=== PATIENT | female | born 1935 | race Caucasian/White ===

== ENCOUNTER 2019-11-09 12:37 | Inpatient (IN) | payer MEDICARE, OTHER ==
[~2019-11-09] VITALS: Ht 165.1 cm; Wt 67.7 kg
[~2019-11-09 12:37] MED LIST: LORTAB 5/500 501 TAB PO; NO HOME MEDICATIONS
[2019-11-09] MEDS ORDERED: NAPROSYN500 MG PO (12:50)
[2019-11-09 13:51] LABS: HEMOGLOBIN 11.2 g/dl (12.5-16.0); MEAN CELL VOLUME 84 fl (80.0-100.0); MEAN CORPUSCULAR HEMOGLOBIN 28 pg (27.0-31.0); MEAN CORPUSCULAR HGB CONC 33 g/dl (33.0-37.0); MEAN PLATELET VOLUME 9.2 fl (7.4-10.4); PLATELET COUNT 373 K/mm3 (130-400); RED BLOOD COUNT 4.01 M/mm3 (4.10-5.30); REDCELL DISTRIBUTION WIDTH-CV 15.3 % (11.5-14.5)
[2019-11-09 13:53] LABS: ALBUMIN 3.9 gm/dL (3.5-5.0); BILIRUBIN,TOTAL 4.5 mg/dL (0.0-1.0); CREATININE, serum 0.96 (0.52-1.25); TOTAL PROTEIN 7.9 gm/dL (6.4-8.2)
[2019-11-09 13:59] LABS: HEMATOCRIT 33.8 % (37.0-47.0)
[2019-11-09 14:04] LABS: C-REACTIVE PROTEIN 22.8 mg/dL (0.0-0.9)
[2019-11-09 15:59] LABS: BAND 4 % (0-10); EOSINOPHIL 2 % (0-4); LYMPHOCYTE 1 % (20.0-51.0); NEUTROPHILS 88 % (42.0-75.2); PLATELET ESTIMATE NORMAL (NORMAL)
[2019-11-09 16:49] LABS: INR 1.3 (0.8-3.0); PROTHROMBIN TIME 15.6 SECONDS (9.7-12.8)
--- NOTE | 2019-11-09 17:47 | NUR ---
Pt arrived to floor at this time via cart with ER staff, oriented to Justino mendez in room to see pt at this time. [facility]
--- NOTE | 2019-11-09 18:59 | NUR ---
Pt up to commode with 1 person assist. Underwear bloody, pt revealed 3x5cm open area pt states is excoriated exzema but appears almost like a pressure ulcer, placed mepilex dressing and brief on pt. Urine is ubaldo and clear. Pt back in bed, elevated RLE on pillows for RLE cellulitis that is very red and no open draining areas. L thigh has 2 scabbed large areas that are yellow and reddened at the edges, MUSIC PRODUCER. L elbow has skin tear that is covered with gauze. L A/C IVF. Pt is alert and oriented, states RLE and sacrem are painful. Eating supper. Bedside shift report given to nightshift nurse who will resume care.
--- NOTE | 2019-11-09 19:30 | NUR ---
Received report from Kandy. Patient is awake, sitting on bed. Relatives at the bedside. With IVF on left AC infusing NS at 100ml/hr. Noted to have swelling and redness more evident on right leg. With sore on left thigh. Patient denies pain.
[2019-11-09 19:32] VITALS: BP 147/69; PULSE 92; TEMP 98.5
[2019-11-09 19:43] LABS: MUCOUS Present /lpf; PH 5 (5-8); SQUAMOUS EPITHELIAL 0-2 /hpf; URINE APPEARANCE Clear; URINE BACTERIA None Seen /hpf; URINE BILIRUBIN Negative (NEGATIVE); URINE BLOOD 1+ (NEGATIVE); URINE COLOR Yellow; URINE GLUCOSE Negative (NEGATIVE); URINE KETONE Trace (NEGATIVE); URINE LEUKOCYTE ESTERASE Negative (NEGATIVE); URINE NITRATE Negative (NEGATIVE); URINE PROTEIN(semi-quant) Negative (NEGATIVE)
[2019-11-09 19:59] LABS: COLLECTION METHOD CLEAN CATCH
[2019-11-09 23:21] VITALS: BP 120/63; PULSE 76; TEMP 99.6
[2019-11-09] MEDS ORDERED: OMEGA-3 1000 MG1 CAP PO (23:57)
[2019-11-09] MEDS ORDERED: VITAMIN D 1001000 IU PO (23:58)
[2019-11-10] MEDS ORDERED: VITAMIN B COMPL1 T16 PO (00:02)
--- NOTE | 2019-11-10 02:50 | NUR ---
Assisted patient to bedside commode to urinate. Noted to have mepilex on her butt. Medication recon updated.
[2019-11-10 03:45] VITALS: BP 135/65; PULSE 84; TEMP 98.9
[2019-11-10 06:17] LABS: BASO % 0.3 % (0.0-2.0); EOS # 0.3 (0.0-0.7); EOS % 2.8 % (0-4.0); GRAN # 9.4 (1.4-6.5); GRAN % 85.8 % (42.2-75.2); LYMPH # 0.5 (1.2-3.4); LYMPH % 4.6 % (20.0-51.0); MEAN CELL VOLUME 84 fl (80.0-100.0); MEAN CORPUSCULAR HGB CONC 33 g/dl (33.0-37.0); MEAN PLATELET VOLUME 8.9 fl (7.4-10.4); MONO # 0.6 (0.1-0.6); MONO % 5.2 % (1.7-9.3); PLATELET COUNT 334 K/mm3 (130-400); RED BLOOD COUNT 3.34 M/mm3 (4.10-5.30); REDCELL DISTRIBUTION WIDTH-CV 15.3 % (11.5-14.5)
[2019-11-10 06:22] LABS: HEMOGLOBIN 9.3 g/dl (12.5-16.0); MEAN CORPUSCULAR HEMOGLOBIN 28 pg (27.0-31.0)
[2019-11-10 06:38] LABS: ALBUMIN 2.8 gm/dL (3.5-5.0); BILIRUBIN,TOTAL 1.1 mg/dL (0.0-1.0); CALCIUM 8.7 mg/dL (8.4-10.2); CREATININE, serum 0.7 (0.52-1.25); POTASSIUM 3.9 mmol/L (3.4-5.0); TOTAL PROTEIN 6.1 gm/dL (6.4-8.2)
[2019-11-10 07:29] VITALS: BP 137/68; PULSE 83; TEMP 98.9
--- NOTE | 2019-11-10 09:00 | NUR ---
Patient resting in bed, daughter at bedside. Patient is alert and orineted, answers questions appropriately. Right foot is discolored, right leg is more edemetous and red than the left, redness is within previously marked borders. Some areas of scaling and flaking on the right leg. IVF infusing per order. Patient denies need at this time, call light within reach.
[2019-11-10 11:32] VITALS: BP 121/63; PULSE 81; TEMP 98.5
--- NOTE | 2019-11-10 16:06 | NUR ---
Corporate Compliance Manager met with patient to discuss discharge planning. Patient lives alone in [place] and sees Landy Zapata at [facility] for primary care. Patient states she either uses [facility] or [facility] for needed medications. Patient has a rolling cart and cane she uses to get around. Donna PT met with SW to advise that patient would benefit from four wheeled walker but that patient was not very open to it at this time. PT/OT recommending post acute rehab vs home health. SW reviewed this with patient who states she plans to go home as she needs to care for her cats. SW suggested patient's daughter, Lindy (ph#[phone]) may be able assist short term while patient is in rehab. Patient states Lindy has enough to do and feels she can go home safely. Patient states she is open to Home Health. SW provided Medicare.marinanow list of Home Health agencies and patient reports she will make a choice once she can review list with Lindy. Patient does not have Advance Directives but may be interested in completing them. Patient wants to speak with Lindy about this first. SW asked patient if she has any secondary insurance coverage and she reported she has a [employer] Application at home that was provided to her by [facility]. Patient states she has not completed it yet. SW contacted Regla, Financial Counselor who will follow up tomorrow. SW contacted patient's daughter Lindy who prefers post acute rehab for patient but reports patient is strong willed and can make her own decisions at this point. Lindy advised she is worried that patient doesn't change her clothes or bathe at home like she should. Lindy will review list of Home Health agencies with patient. SW will follow up on choice and continue to follow to ensure safe discharge.
[2019-11-10 16:31] VITALS: BP 132/57; PULSE 78; TEMP 98.8
--- NOTE | 2019-11-10 17:31 | NUR ---
Patient ambulated with PT and reported that IV was leaking. Upon inspection, site was not reddened but catheter hadmigrated out of vein. Restarted a 22 gauge in the left hand, patient tolerated procedure well. Patient denies pain or further needs at this time, call light within reach.
[2019-11-10 19:55] VITALS: BP 142/68; PULSE 75; TEMP 98.5
[2019-11-10 23:50] VITALS: BP 136/66; PULSE 74; TEMP 99.1
[2019-11-11 03:25] VITALS: BP 146/59; PULSE 71; TEMP 98.6
--- NOTE | 2019-11-11 06:09 | NUR ---
Pt had some nausea at the beginning of the shift that caused some dry heaving. Pt then was given some zofran. No more nausea throughout the night. Pt has no c/o pain, just some discomfort with her legs and back (from the bed she states). No other concerns at this time. call light within reach.
[2019-11-11 06:25] LABS: MEAN CELL VOLUME 86 fl (80.0-100.0); MEAN CORPUSCULAR HGB CONC 33 g/dl (33.0-37.0); MEAN PLATELET VOLUME 8.8 fl (7.4-10.4); PLATELET COUNT 308 K/mm3 (130-400); RED BLOOD COUNT 3.14 M/mm3 (4.10-5.30); REDCELL DISTRIBUTION WIDTH-CV 15.7 % (11.5-14.5)
[2019-11-11 06:33] LABS: HEMATOCRIT 26.9 % (37.0-47.0); HEMOGLOBIN 8.8 g/dl (12.5-16.0); MEAN CORPUSCULAR HEMOGLOBIN 28 pg (27.0-31.0)
[2019-11-11 06:42] LABS: ALBUMIN 2.6 gm/dL (3.5-5.0); BILIRUBIN,TOTAL 0.5 mg/dL (0.0-1.0); CALCIUM 8.2 mg/dL (8.4-10.2); CREATININE, serum 0.6 (0.52-1.25); POTASSIUM 3.9 mmol/L (3.4-5.0); TOTAL PROTEIN 5.7 gm/dL (6.4-8.2)
[2019-11-11 07:56] LABS: BAND 5 % (0-10); LYMPHOCYTE 8 % (20.0-51.0); METAMYELOCYTE 1 % (0-0); NEUTROPHILS 84 % (42.0-75.2); OVALOCYTES 1+; PLATELET ESTIMATE NORMAL (NORMAL)
[2019-11-11 08:07] VITALS: BP 145/66; PULSE 76; TEMP 99.4
--- NOTE | 2019-11-11 09:03 | NUR ---
Patient is alert and oriente. Patient complain of soreness but decline pain medication. Daughter is visiting at bedside at the moment. Patient is in bed resting.
[2019-11-11 11:54] VITALS: BP 132/60; PULSE 81; TEMP 98.6
--- NOTE | 2019-11-11 12:03 | NUR ---
Initial visit attempt; Patient resting, Plate Washer spoke with her daughter, letting her know of the availability of spiritual care at our hospital.
[2019-11-11 15:25] VITALS: BP 132/60; PULSE 81; TEMP 98.6
--- NOTE | 2019-11-11 16:44 | NUR ---
Patient to discharge to [facility] today. SW notified Mary at [facility] and thanked her for reviewing referral. No additional needs at this time.
--- NOTE | 2019-11-11 16:56 | NUR ---
Patient is alert and oriented. She ambulate fine with PT down the castillo this afternoon. Patient denies any discomfort at this time. Patient is discharging to in-patient Rehab. Report given to Nicole Travis in-patient rehab unit.
== END 2019-11-11 17:08 | DRG 603 ==
LOC: COL.ER 12:37 → MEDICAL 15:30
PROVIDERS: Emergency Medicine; Physician Assistant; ADMIT Hospitalist
DX: L03.115 Cellulitis of right lower limb (principal); E87.1 Hypo-osmolality and hyponatremia; K81.0 Acute cholecystitis; D64.9 Anemia, unspecified; I10 Essential (primary) hypertension; K81.9 Cholecystitis, unspecified
CPT/HCPCS: OP; 99222-AI; 99232-AI; 99239; G0378; J1644; J2405; J3370; J7030; J7050

== ENCOUNTER 2019-11-11 12:29 | Inpatient (IN) | payer MEDICARE, OTHER ==
[~2019-11-11] VITALS: Ht 162.6 cm; Wt 65.0 kg
[~2019-11-11 12:29] MED LIST changes: +NAPROSYN500 MG PO; +OMEGA-3 1000 MG1 CAP PO; +VITAMIN B COMPL1 T16 PO; +VITAMIN D 1001000 IU PO
--- NOTE | 2019-11-11 16:56 | NUR ---
Report from Miaa medical nurse.
--- NOTE | 2019-11-11 17:17 | NUR ---
Pt arrived on unit per bed by DISINTEGRATOR OPERATOR, with daughter and granddaughter.
[2019-11-11 17:27] VITALS: BP 136/63; PULSE 76; TEMP 98.4
[2019-11-11 17:32] VITALS: BP 136/63; PULSE 78; TEMP 98.4
--- NOTE | 2019-11-11 19:27 | NUR ---
Bedside report to MARY Garcia. Pt in bed, turned alarm on, family has left for the night. Pt with call lt in reach.
--- NOTE | 2019-11-11 20:00 | NUR ---
SEE SHIFT ASSESSMENT. PT RESTING IN BED. NOTEABLE KYPHOSIS. NEEDS 2 PILLOWS TO SUPPORT HER HEAD. PT HAS FINE TREMORS. PT RELATES IS GETS WORSE. WISH DR'S WOULD LOOK INTO IT BECAUSE IT AFFECT HER BALANCE. CALL LIGHT IN REACH. BED ALARM SET.
[2019-11-12 05:44] VITALS: BP 144/67; PULSE 82; TEMP 98.4
--- NOTE | 2019-11-12 06:08 | NUR ---
PT UP TO BR. MEPILEX TO COCCYX REMOVED. LG STAGE 3 WOUND APPROX 10CM X 10 CM. EDGES OF WOUND RAISED. NO BONE OR FAT EXPOSED. SURROUNDING AREA RED OR DISCOLORED. AREA CLEANED W/ NS THE SACRAL DRSG APPLIED. PT DIDNT WANT WET BRIEFS CHANGED. ASSISTED TO BR. VOIDED AND CLEANED UP. BACK TO BED. PT REFUSED TO LAY ON EITHER SIDE. WILL PLACE BED OVERLAY.
--- NOTE | 2019-11-12 08:29 | NUR ---
Ice pack to rt knee for pain, tylenol given, pt doesn't think it will help, used to taking her naproxen.
--- NOTE | 2019-11-12 16:35 | NUR ---
AN met with the patient to complete initial intake, as the patient is new to [facility]. The patient lives alone in [place]. She states that her daughter, Lindy Garcia (ph#[phone]), lives two blocks away from her. She reports independence with ADLs and has a cane. The patient's primary care provider is Landy Zapata APRN at [facility] and she receives her medications at [facility]. She reports that she has never really been on any prescription medications, to have diffulties affording them. The patient does not have advanced directives, but she was interested in obtaining a form for DPOA-HC. AN provided. She states that her and her daughter have been discussing completing them. She states that her daughter should be up to visit her tomorrow. SW to continue to follow to ensure a safe discharge.
--- NOTE | 2019-11-12 17:48 | NUR ---
Stage II coccyx: left buttock with three open wounds over an area 2x4cm. Applied silver gauze to raw areas, ulcer is not complete thickness of skin. Red/purple blanchable surrounding area: 11 cm high, 7 cm across left buttock, 5 cm across right buttock. Sacral dressing applied and dated.
[2019-11-12 18:33] VITALS: BP 139/65; PULSE 88; TEMP 98.8
--- NOTE | 2019-11-12 19:58 | NUR ---
Bedside report to MARY Garcia. Pt was toileted, returned to bed, RLE elevated on pillow, air mattress in place on bed, alarm on, call lt in reach, glasses and gripper socks in place. Seat cushion to recliner. Provided pt one of her fully charged hearing aids, plugged the second one in.
--- NOTE | 2019-11-12 20:00 | NUR ---
PT SAT UP ON SIDE OF BED. ALARM SOUNDING. FRUSTRATED SHE HAS TO HAVE AN ALARM. REVIEWED SAFETY PRECAUTIONS. PT VERBALIZED UNDERSTANDING. TIN POT OPERATOR ASSISTED PT TO BR- VOIDED. COCCYX DRSG IN PLACE.
[2019-11-13 05:30] VITALS: BP 163/72; PULSE 76; TEMP 98.1
--- NOTE | 2019-11-13 07:30 | NUR ---
Patient resting in bed eating breakfast at this time. Right leg is edemetous, non pitting. Right foot is discolored, skin on RLE is dry and flaky. Patient denies pain or needs at this time, call light within reach.
--- NOTE | 2019-11-13 14:53 | NUR ---
AN met with the patient and her daughter, Lindy, to follow up before the weekend and to discuss setting up a patient/family conference. The patient states that she is doing well. Just got done with therapy and is tired. She was interested in completing a DPOA-HC. AN and RN, Victoria, witnessed the patient's signature. She designated her daugher, Lindy, as her DPOA-HC. The patient was provided with the original and some copies. AN placed a copy in the patient's chart. A patient/family conference was scheduled for next Saturday, 11/16, at 1300. AN notified IPR Director. AN to continue to follow.
[2019-11-13 15:50] VITALS: BP 155/72; PULSE 80; TEMP 98.9
--- NOTE | 2019-11-13 16:47 | NUR ---
Patient in bed resting. Daughter at bedside.
--- NOTE | 2019-11-13 18:26 | NUR ---
Patient has done well this afternoon. Denies further needs at this time. Will report off to overnight stocker.
--- NOTE | 2019-11-13 20:40 | NUR ---
Patient calls for assist up to the bathroom. Some difficulty sitting up on side of bed but does so independently. Manages all toileting tasks. Aquacel to buttucks CDI. Declines pain med for RLE achyness/soreness following therapy. Rests self slowly back in bed. HS meds reviewed and given. Declines snack. Reads a book.
[2019-11-14 05:03] VITALS: BP 153/70; PULSE 77; TEMP 98.9
--- NOTE | 2019-11-14 11:27 | NUR ---
PT HAS BED ALARM ON. CALL LIGHT IN REACH. PT ATE 100% MEAL AT BREAKFAST. HAS JUST RETURNED FROM THERAPY WITH STAFF. AQUAPHOR JELLY PUT ON LEFT FOOT. THE SKIN IS LESS REDDENED. THE TOP OF THE LEFT FOOT REMAINS BRUISED AND PUFFY WITH YELLOWISH EXUDATE PRESENT. THE TOES ARE QUITE SWOLLEN AND PURPLISH.
--- NOTE | 2019-11-14 13:32 | NUR ---
PT MELISSA TO GET OUT AND IN BED PER SELF. SHE NEEDS MINIMAL ASSIST WITH HER RIGHT LEG INTO BED. OTHERWISE HER PAIN IS CONTROLLED AND SHE IS COMFORTABLE.
[2019-11-14 16:18] VITALS: BP 144/71; PULSE 79; TEMP 99
--- NOTE | 2019-11-14 18:13 | NUR ---
PT HAS BEEN READING AND NAPPING FOR MOST OF THE DAY SINCE HER THERAPY. SHE HAS EATEN WELL FOR ALL MEALS. SHE HAS HAD NO REAL PAIN JUST DISCOMFORT THAT SHE DID NOT WANT MEDS FOR. HER RIGHT LEG HAS BEEN UP ON PILLOWS EXCEPT WHEN SHE GOES TO THE BATHROOM. SHE AMBULATES WELL AND MOVES IN HER BED WELL. CALL LIGHT AND ALARMS INPLACE
--- NOTE | 2019-11-14 19:00 | NUR ---
Report received from Nichelle HERNANDEZ. Patients daughter in visiting and brought clothes in for patient.
--- NOTE | 2019-11-14 21:30 | NUR ---
HS meds reviewed and given. Patient up to the bathroom and changes into gown. Encouraged not to stand to take off pants but states she knows her limitations and does it this way at home. Patient rests self with some difficulty back in bed. BLE elevated/heels floated. RLE remains red and warm to touch from knee down. Right top of foot with purple and tanish discoloration. States her daughter just applied aquafor to RLE. Declines pain med and snack.
--- NOTE | 2019-11-15 03:01 | NUR ---
Rests with eyes closed. Respirations with ease.
[2019-11-15 04:51] VITALS: BP 149/67; PULSE 89; TEMP 97.4
--- NOTE | 2019-11-15 08:07 | NUR ---
Lying in bed with eyes open watching TV. Denies pain. Right lower extremity with redness and bruising noted to foot. Two scabbed over areas on left lower extremity. Mild swelling in bilat LE. Patient denies any needs at this time.
--- NOTE | 2019-11-15 09:20 | NUR ---
Patient did not want to perform bed bath today. Assisted into chaning into personal clothes. Patient brushes teeth. Returns to bed once completed.
--- NOTE | 2019-11-15 12:55 | NUR ---
Patient assisted into bathroom to urinate. Returns to bed. Does not want to sit in the chair as she says that it is too uncomfortable. Patient denies further needs or concerns at this time.
--- NOTE | 2019-11-15 16:00 | NUR ---
Lying in bed in supine position with eyes closed. Resp even and unlabored. No signs or symptoms of discomfort noted. Right leg is elevated on pillow. Opens eyes when name called out. Denies any needs at this time.
[2019-11-15 16:12] VITALS: BP 130/62; PULSE 73; TEMP 98.7
--- NOTE | 2019-11-15 17:25 | NUR ---
Sitting up in bed watching TV. Denies pain. Denies any needs or concerns at this time.
--- NOTE | 2019-11-15 19:30 | NUR ---
PATIENT RESTING IN BED, WATCHING TV DURING SHIFT CHANGE REPORT FROM DAY SHIFT NURSE. BED ALARM ON.
--- NOTE | 2019-11-16 01:35 | NUR ---
RESTING IN BED WITH EYES CLOSED, DOES NOT AWAKEN WHEN ROOM ENTERED. BED ALARM ON. BREATHING NONLABORED AND EVEN.
--- NOTE | 2019-11-16 04:33 | NUR ---
RESTING IN BED, EYES CLOSED, DOES NOT AWAKEN WHEN ROOM ENTERED, BREATHING EVEN/NONLABORED, BED ALARM ON.
[2019-11-16 05:05] VITALS: BP 147/68; PULSE 70; TEMP 98.2
[2019-11-16 06:38] LABS: MEAN CELL VOLUME 88 fl (80.0-100.0); MEAN CORPUSCULAR HGB CONC 32 g/dl (33.0-37.0); MEAN PLATELET VOLUME 9.1 fl (7.4-10.4); PLATELET COUNT 362 K/mm3 (130-400); RED BLOOD COUNT 3.28 M/mm3 (4.10-5.30); REDCELL DISTRIBUTION WIDTH-CV 15.7 % (11.5-14.5)
[2019-11-16 06:47] LABS: HEMATOCRIT 28.7 % (37.0-47.0); HEMOGLOBIN 9.1 g/dl (12.5-16.0); MEAN CORPUSCULAR HEMOGLOBIN 28 pg (27.0-31.0)
[2019-11-16 06:55] LABS: ALBUMIN 3.1 gm/dL (3.5-5.0); BILIRUBIN,TOTAL 0.5 mg/dL (0.0-1.0); C-REACTIVE PROTEIN 2.6 mg/dL (0.0-0.9); CREATININE, serum 0.76 (0.52-1.25); POTASSIUM 3.9 mmol/L (3.4-5.0); TOTAL PROTEIN 6.6 gm/dL (6.4-8.2)
[2019-11-16 07:25] LABS: BAND 2 % (0-10); EOSINOPHIL 1 % (0-4); HYPOCHROMIA 1+; LYMPHOCYTE 19 % (20.0-51.0); METAMYELOCYTE 1 % (0-0); MYELOCYTE 1 % (0-0); NEUTROPHILS 71 % (42.0-75.2); OVALOCYTES 1+
--- NOTE | 2019-11-16 07:26 | NUR ---
PATIENT IN BED DURING SHIFT CHANGE REPORT GIVEN TO DAY SHIFT NURSE. BED ALARM ON.
[2019-11-16 08:15] LABS: PATHOLOGY DIFF REVIEW OK
--- NOTE | 2019-11-16 09:13 | NUR ---
Patient working with therapy at this time. Patient reports that recliner is very uncomfortable for her. Cushion is on the chair, but patient has kyphosis and this causes her to have more discomfort when sitting in a chair. Patient was asking about blood pressure cuffs. This nurse will research where to get them and prices for her. Patient denied any other questions at this time.
--- NOTE | 2019-11-16 10:05 | NUR ---
Patient was a one assist with gait belt and walker to the bathroom this morning. She was able to pull pants up and down and wipe self independently with only touch assist as needed for steadying. Patient resting in bed at this time, call light in reach, bed alarm set and reading a book.
--- NOTE | 2019-11-16 13:43 | NUR ---
Celery Packer participated in a family meeting which included IPR Director Clair, PT/OT, and patient's daughter Lindy (ph#[phone]). Clair opened the meeting and explained purpose then PT/OT reviewed patient's progress and goals. Lindy discussed possible equipment needs with the team and is interested in obtaining grab bars, cushions, and a tub transfer bench for patient. The team also discussed the potential recommendation for a four wheeled walker. Patient states she does not feel she needs it at this time but was open to obtaining one as a back up for her "bad days". Patient also stated she needs to go home by Saturday. SW will continue to follow.
[2019-11-16 18:30] VITALS: BP 154/67; PULSE 81; TEMP 97.4
--- NOTE | 2019-11-16 19:40 | NUR ---
PATIENT IN BED DURING SHIFT CHANGE REPORT FROM DAY SHIFT NURSE. BED ALARM ON.
--- NOTE | 2019-11-16 20:38 | NUR ---
Patient resting in bed call light in reach and alarm set. Gave report to night nurse.
--- NOTE | 2019-11-17 01:00 | NUR ---
PATIENT RESTING WITH EYES CLOSED, DOES NOT AWAKEN WHEN ROOM ENTERED, BREATHING EVEN AND NONLABORED. BED ALARM ON.
[2019-11-17 05:18] VITALS: BP 148/70; PULSE 63; TEMP 97.6
--- NOTE | 2019-11-17 09:22 | NUR ---
Patient resting in bed call light in reach and bed alarm set. Applied aquaphor to bilateral feet. Patient has less edema to the left knee then yesterday, but there is still redness and warmth. She was given Naproxyn to help with inflammation and pain prior to her morning therapies today. Patient has two scabbed areas on left thigh that still have some redness around them, but area continuing to heal. Patient is on an Antibiotic at this time. Will continue to monitor.
--- NOTE | 2019-11-17 10:47 | NUR ---
This nurse spoke with DENIS Mitchell to find out if the redness to the patient's later right knee and foot per her observation has improved and she has agreed that it has. She did report that patient was concerned about lateral right knee hurting more. This nurse observed some swelling to that right knee last night, but this morning after elevation the swelling was not there. Will continue to monitor.
--- NOTE | 2019-11-17 11:13 | NUR ---
Initial visit; Patient thanked Warehouse Associate Driver for looking in on her and offering God's blessings and to keep her in her prayers.
[2019-11-17 15:34] VITALS: BP 151/71; PULSE 72; TEMP 97.5
--- NOTE | 2019-11-17 17:34 | NUR ---
Stage II Coccyx Ulcer observed this afternoon left buttocks has a healing ulcer that has continued to get smaller now being closed area that is 4 cm x 0.5 cm oblong shape with a small scab on the upper side. There is a small 0.5 cm round open area with pink bed slightly above that area. Right side is healed. Patient reports that it is not causing her any pain now. Wound was cleaned with normal saline, patted dry, applied aquacel AG to area and secured with mepilex bandage. Will continue to monitor.
--- NOTE | 2019-11-17 18:09 | NUR ---
Patient is resting in bed, call light in reach and independent in her room. She denies any questions at this time. It is her birthday today and her daughter tried calling her, but she has too dificult of a time hearing on the room phone. Granddaughter did wish her a happy birthday today.
--- NOTE | 2019-11-17 21:30 | NUR ---
Patient resting in bed reading. Denies pain at this time. HS meds reviewed and given. Declines snack. Is mod I in room. RLE redness much improved from Saturday and echymosis right foot diminishing/skin peeling. Right foot sock removed and left open to air.
--- NOTE | 2019-11-18 01:25 | NUR ---
Patient awake and up to the bathroom with walker and back to bed.
[2019-11-18 03:25] VITALS: BP 163/63; PULSE 64; TEMP 98.4
--- NOTE | 2019-11-18 16:03 | NUR ---
Cork Mixer met with patient to provide copy of team conference notes. Earlier in the afternoon, AN spoke with PTDonna who advised patient may prefer Home Health over outpatient PT/OT. SW spoke with patient about HH vs outpatient. Patient reported that if she did outpatient she would have to take the [facility] bus and she isn't sure about that as she doesn't see or know the area well. Patient states her daughter cannot take her as she works and does not have a vehicle. Patient feels at this time HH would be a better option for her. SW provided Medicare.gov list of HH agencies that serve [place]. SW will follow up tomorrow on patient choice. SW reviewed equipment needs to be purchased by patient including tub transfer bench, grab bars, hurrycane, and weighted utensils. SW provided print outs of local pricing for these items. Patient expressed interest in a hurrycane and thought she could afford this. Patient states she is concerned if a tub transfer bench will fit in her bathroom. SW asked patient if she felt she could afford all these items and patient states she was not sure. Patient reports she owes money to the decorator hand and to [facility]. Patient states she needs to pay these off before she purchases these items. SW offered to contact the [facility] Agency on Aging as sometimes they have this equipment available for little or no cost. Patient states she doesn't want SW to do this at this time. SW asked patient again about if she would like to explore obtaining a four wheeled walker. Patient states she's "not in the market for one at this time". SW attempted to contact patient's daughter, Lindy but was not able to reach her. AN was unable to leave a message as voicemail had not been set up. AN will continue to attempt contact and follow up on equipment needs.
[2019-11-18 16:44] VITALS: BP 134/84; PULSE 66; TEMP 98.5
--- NOTE | 2019-11-18 20:01 | NUR ---
Pt jefe mod I in room with her own cart or walker. Report to MARY Brown.
--- NOTE | 2019-11-19 01:00 | NUR ---
Patient has been resting in bed until now. States not having pain just some soreness right knee. Denies needs. Up to the bathroom and now reading in bed.
[2019-11-19 05:12] VITALS: BP 174/80; PULSE 82; TEMP 97.8
[2019-11-19 07:42] VITALS: BP 161/67; PULSE 66; TEMP 98.3
--- NOTE | 2019-11-19 11:07 | NUR ---
Follow-up visit; Radha is doing well and intends to be discharged today. Food Technology Teacher offered spiritual care and encouragment and wished her well.
[2019-11-19 15:11] VITALS: BP 125/62; PULSE 70; TEMP 98.5
--- NOTE | 2019-11-19 15:39 | NUR ---
Manufacturing Quality Engineer spoke with patient's daughter, Lindy about discharge recommendations including home health and DME. AN advised she will follow up on HH choice this afternoon. AN reviewed recommendation for hurrycane, tub transfer bench, weighted utensils, and grab bars. Lindy advised if patient could not afford these items, she could purchase them. AN advised sometimes the Area Agency on Aging has items for free. Lindy states she is planning on contacting patient's landlordKevin about installing grab bars and will also start looking at other equipment this afternoon. AN met with patient who selected [facility]. AN also followed up with patient about recommended DME and patient states she's not sure she needs all of it. Patient also states she does not feel her landlord will allow grab bars to be installed. Patient states she feels she will be fine at home with or without the grab bars. AN presented and explained IM form to patient who verbalized understanding and provided signature. AN placed original in chart and provided a copy to patient. AN contacted [facility] and faxed a referral. AN also called and left a message at the [facility]. SW to continue to follow.
--- NOTE | 2019-11-19 20:00 | NUR ---
BEDSIDE SHIFT REPORT REC'D FROM JS/RN. PT RESTING IN BED. HENRY IN ROOM WITH OPTIONS OF DEVICES- CANE, WALKER ETC. PT HAS PRETTY SIGNIFICANT KYPHOSIS. SLEEPS WITH NECK BENT FORWARD W/O PILLOW SUPPORT. PTS DAUGHTER HERE. VERY SUPPORTIVE. NO NEEDS AT THIS TIME. SEE SHIFT ASSESSMENT.
--- NOTE | 2019-11-19 20:43 | NUR ---
Wounds: Left thigh, two areas pt reports scratching (hx of eczema). 1) 0.7cm scab within 1.5 x 2 cm area of blanchable redness, tender, healing. 2) 1cm scab within 2 cm area of blanchable redness, tender, healing. Total area of redness around two scabs is 2 cm x 4.5 cm. Patient applies Aquaphor ointment independently. Bilateral sacrum: Area of blanchable redness 8 cm high at midline, extends 5.5 cm over left buttock, extends 5 cm over right buttock. This area surrounds three Stage II scabs which have improved significantly with application of Aquacel Ag (silver gauze) and Allevyn Life (sacral foam dressing), continues to have shallow scabbing 2 cm wide x 7 cm high. Replaced dressing with only Allevyn this evening as there are no open, raw areas. Dated. Right lower extremity: Cellulitis, redness, edema extends proximal to knee. Skin is flaky, pt applies aquaphor ointment. Dorsal foot has old ecchymotic skin that is cracking and flaking off, intact pink granulated tissue underneath, pt applies aquaphor ointment.
--- NOTE | 2019-11-19 20:57 | NUR ---
Faxed wound note to [facility] per their request.
--- NOTE | 2019-11-19 21:16 | NUR ---
Received "OK" fax receipt. Bedside report to MARY Garcia. Pt jefe Mod I in rm w/ cart/cane/walker. Daughter Lindy visited this evening.
--- NOTE | 2019-11-20 06:23 | NUR ---
PT AWAKE. UP TO BR PER SELF. DENIES NEEDS. HAD A GOOD NIGHT.
[2019-11-20] MEDS ORDERED: NAPROSYN 2250 MG/TAB PO (08:42)
[2019-11-20] MEDS ORDERED: TYLENOL 325MG325 MG PO (08:43)
[2019-11-20] MEDS ORDERED: ZESTRIL 10MG10 MG PO (08:44)
--- NOTE | 2019-11-20 11:03 | NUR ---
Observer Electrical Prospecting was contacted by Gail at the [facility] on Aging who advised they had a tub transfer bench patient could borrow until her Medicaid is approved. AN met with patient and patient's daughter Lindy to review discharge plan. AN provided information about resources through the [facility] on Aging. Lindy states she knows where [employer] is and how to get in contact with them. Patient and Lindy plan on going to [facility] to explore equipment options. Patient would like to see if [facility] can fix her cane before she purchases a hurrycane. AN advised that she contacted [facility] and was told that a physical therapist may be able to come out to patient's home tomorrow. Patient states this will work for her. AN faxed discharge orders to Sarah at [facility]. AN also contacted Kj, Financial Counselor to confirm patient is Medicaid Pending. No additional needs at this time.
--- NOTE | 2019-11-20 14:07 | NUR ---
Patient Health Summary, Discharge Summary, and Home meds printed and reviewed with patient and her daughter. Stressed importance of follow up appointments. Belongings gathered by Dennis including wallet, watch, ring, braclet, phone, machine pecan gatherer and misc. items. Patient transported via wheelchair by Dennis and seatbelted form ride home daughter. Patient and daughter denied questions.
== END 2019-11-20 13:50 | disposition home health service (06) | DRG 948 ==
PROVIDERS: ADMIT Internal Medicine
DX: R53.81 Other malaise (principal); L03.115 Cellulitis of right lower limb; E87.1 Hypo-osmolality and hyponatremia; D64.9 Anemia, unspecified; M19.90 Unspecified osteoarthritis, unspecified site; E87.8 Other disorders of electrolyte and fluid balance, not elsewhere classified; I10 Essential (primary) hypertension; R94.5 Abnormal results of liver function studies; R74.8 Abnormal levels of other serum enzymes
CPT/HCPCS: 99222-AI; 99231-AI; 99232-AI; 99239; J1644

== ENCOUNTER 2020-03-09 08:58 | Inpatient (IN) | payer MEDICARE ==
[~2020-03-09] VITALS: Ht 162.6 cm; Wt 66.4 kg
[~2020-03-09 08:58] MED LIST changes: +NAPROSYN 2250 MG/TAB PO; +TYLENOL 325MG325 MG PO; +ZESTRIL 10MG10 MG PO
[2020-03-09 09:33] LABS: HEMOGLOBIN 11.8 g/dl (12.5-16.0); MEAN CELL VOLUME 87 fl (80.0-100.0); MEAN CORPUSCULAR HEMOGLOBIN 28 pg (27.0-31.0); MEAN CORPUSCULAR HGB CONC 33 g/dl (33.0-37.0); MEAN PLATELET VOLUME 8.8 fl (7.4-10.4); PLATELET COUNT 283 K/mm3 (130-400); RED BLOOD COUNT 4.18 M/mm3 (4.10-5.30); REDCELL DISTRIBUTION WIDTH-CV 14.6 % (11.5-14.5)
[2020-03-09 09:36] LABS: HEMATOCRIT 36.2 % (37.0-47.0)
[2020-03-09 09:47] LABS: ALANINE AMINOTRANSFERASE 717 U/L (4-34); ALBUMIN 3.8 gm/dL (3.5-5.0); ALKALINE PHOSPHATASE 275 U/L (50-136); ANION GAP 7 mmol/L (7-16); BILIRUBIN,TOTAL 2.1 mg/dL (0.0-1.0); BLOOD UREA NITROGEN 18 mg/dL (7-17); CALCIUM 9.4 mg/dL (8.4-10.2); CARBON DIOXIDE 25 mmol/L (22-30); CHLORIDE 104 mmol/L (98-107); GLUCOSE 90 mg/dL (74-106); MAGNESIUM 1.8 mg/dL (1.6-2.3); POTASSIUM 3.9 mmol/L (3.4-5.0); SODIUM 136 mmol/L (137-145); TOTAL PROTEIN 7.5 gm/dL (6.4-8.2)
[2020-03-09 10:01] LABS: TROPONIN-I < 0.012 ng/mL (0.000-0.035)
[2020-03-09 10:03] LABS: BAND 4 % (0-10); EOSINOPHIL 1 % (0-4); LYMPHOCYTE 6 % (20.0-51.0); NEUTROPHILS 89 % (42.0-75.2); PLATELET ESTIMATE NORMAL (NORMAL); SCHISTOCYTES 1+
[2020-03-09 10:28] LABS: AST,SGOT 1557 U/L (15-37)
[2020-03-09 11:10] LABS: LIPASE 21201 U/L (23-300)
[2020-03-09] MEDS ORDERED: MYSOLINE 5050 MG/TAB PO (11:37)
[2020-03-09 14:00] VITALS: BP 136/66; PULSE 87; TEMP 98.5
[2020-03-09 16:13] VITALS: BP 136/66; PULSE 78; TEMP 98.5
[2020-03-09 16:17] VITALS: BP 140/69; PULSE 86; TEMP 98.2
--- NOTE | 2020-03-09 17:45 | NUR ---
Pt admission, med rx. is completed. Pt is in room air, pt is alert and oriented, pt is in tele, NS. I/V line flushed with no difficulty, NS at 125ml/hr is running. Pt is in NPO. No N/V/D, pain, numbness, tingling, SOB as per pt. Pt daughter was with her in afternoon. No further need at this time.
--- NOTE | 2020-03-09 19:10 | NUR ---
Received report from Mamadou. Seen patient asleep in bed. With IV at left forearm running NS at 125ml/hr. On tele.
[2020-03-09 20:08] VITALS: BP 151/67; PULSE 89; TEMP 97.6
--- NOTE | 2020-03-09 20:40 | NUR ---
Patient is awake. Desenex applied under her breast and skin fold of her abdomen. Denies any pain. Offered to assist patient to the bathroom but she said she doesn't feel like she needs to urinate. Maintained on NPO. Denies any pain.
[2020-03-09 22:13] VITALS: BP 140/65; PULSE 90; TEMP 99.5
--- NOTE | 2020-03-09 22:20 | NUR ---
Assisted patient to the restroom to urinate. She uses her cane and on standby assist. She scratched her left elbow and it starts to have mild bleeding. Covered her left elbow with gauze and coban.
[2020-03-10] VITALS (10 sets, daily range): BP systolic 134–168; BP diastolic 54–73; PULSE 72–87; TEMP 97.8–99.2
[2020-03-10 06:43] LABS: ALBUMIN 2.9 gm/dL (3.5-5.0); BASO % 0.4 % (0.0-2.0); CALCIUM 8.8 mg/dL (8.4-10.2); CREATININE, serum 0.68 (0.52-1.25); EOS # 0.5 (0.0-0.7); EOS % 5.8 % (0-4.0); GRAN # 6.7 (1.4-6.5); GRAN % 82.3 % (42.2-75.2); HEMOGLOBIN 9.2 g/dl (12.5-16.0); LYMPH # 0.5 (1.2-3.4); LYMPH % 6.6 % (20.0-51.0); MEAN CELL VOLUME 88 fl (80.0-100.0); MEAN CORPUSCULAR HEMOGLOBIN 29 pg (27.0-31.0); MEAN CORPUSCULAR HGB CONC 33 g/dl (33.0-37.0); MEAN PLATELET VOLUME 9.3 fl (7.4-10.4); MONO # 0.4 (0.1-0.6); MONO % 4.5 % (1.7-9.3); PLATELET COUNT 255 K/mm3 (130-400); POTASSIUM 3.5 mmol/L (3.4-5.0); RED BLOOD COUNT 3.16 M/mm3 (4.10-5.30); REDCELL DISTRIBUTION WIDTH-CV 15.2 % (11.5-14.5); TOTAL PROTEIN 5.9 gm/dL (6.4-8.2)
[2020-03-10 06:44] LABS: HEMATOCRIT 27.9 % (37.0-47.0)
--- NOTE | 2020-03-10 06:51 | NUR ---
PAtient had an uneventful night. Denies any pain. Alcohol detox assesment range on score of 0-2. Will endorse to day shift nurse.
--- NOTE | 2020-03-10 12:26 | NUR ---
First visit from the mill washer. No needs right now.
--- NOTE | 2020-03-10 13:49 | NUR ---
Engineering Vice President met with patient and patient's daughter, Lindy (ph#[phone]) to discuss discharge planning. Patient lives alone in [place] and states that Lindy lives about two blocks away from her. Patient sees MONIQUE Tracey at [facility] for primary care and obtains mediations from [facility]. Patient has a cane but primarily uses a rolling cart for ambulation. Patient states this is what works best for her. [facility] and a four wheel walker was recommended. Patient states to AN that this would not work for her and is not interested in one at this time. Patient states she feels she does fine at home but Lindy advised patient has been weaker and having pain in her legs. Patient does advise that she struggles with tremors which makes it more difficult to get around. Patient has DPOA-HC located in [facility] which designates Lindy. AN inquired about Medicaid for patient and Lindy advised patient has been denied twice. AN consulted Regla Financial Counselor. Lindy feels patient may benefit from post acute rehab upon discharge. Patient is agreeable to referral to [facility] but does not want referrals sent to any local SNFs. Patient states if [facility] cannot take her she would want to go home with Home Health. AN contacted MISHEL Self Director to give referral. AN contacted MONIQUE Cohn to request PT/OT. AN to continue to follow.
--- NOTE | 2020-03-10 14:17 | NUR ---
Pt NPO has chnaged to clear liquid, gave her a cup of coffee. Put barrier creams and dressing on her back over her bedsore/skin scratch and Daughter is in her bedside. No any other needs at this time.
--- NOTE | 2020-03-10 14:24 | NUR ---
Pt assessment completed and charted, roomair, alert and oriented. Meds provided as per NOV, tolerated well. I/V fluid is running without complications. No N/V/D, pain, numbness, tingling, SOB at this time as per pt. No further needs at this time.
--- NOTE | 2020-03-10 17:59 | NUR ---
Pt rested on her bed, watching TV and chatting with her daughter. No further needs at this time.
--- NOTE | 2020-03-10 20:45 | NUR ---
Patient assessed at this time. Alert and oriented x 4, and able to make needs known. Denies having pain and discomfort at this time. Peripheral IV to left forearm, fluids running per orders. Site is without redness, warmth, swelling, and pain. Denies SOB and dyspnea. LS CTA. Respirations even and unlabored. HRR. Capillary refill less than 3 seconds. Non-tenting skin turgor. BSAx4. Abdomen soft and non-tender. No edema. Desenex powder applied to breast and abdominal folds where redness is present. Mepilex to stage 2 ulcer on coccyx is CDI. Abrasion to left elbow. Voices no questions, needs, or concerns at this time. Resting in bed with call light within reach.
[2020-03-11 04:00] VITALS: BP 154/76; PULSE 74; TEMP 98
--- NOTE | 2020-03-11 04:56 | NUR ---
Patient has been resting in bed with call light within reach. Has denied having pain and discomfort this shift. Voices no questions, needs, or concerns.
[2020-03-11 08:15] VITALS: BP 170/87; PULSE 77; TEMP 98.8
[2020-03-11 08:41] LABS: BASO % 0.6 % (0.0-2.0); EOS # 0.7 (0.0-0.7); EOS % 12.1 % (0-4.0); GRAN # 3.9 (1.4-6.5); GRAN % 71.7 % (42.2-75.2); LYMPH # 0.6 (1.2-3.4); LYMPH % 10.3 % (20.0-51.0); MEAN CELL VOLUME 88 fl (80.0-100.0); MEAN CORPUSCULAR HEMOGLOBIN 28 pg (27.0-31.0); MEAN CORPUSCULAR HGB CONC 32 g/dl (33.0-37.0); MEAN PLATELET VOLUME 9.3 fl (7.4-10.4); MONO # 0.3 (0.1-0.6); MONO % 5.1 % (1.7-9.3); PLATELET COUNT 260 K/mm3 (130-400); RED BLOOD COUNT 3.55 M/mm3 (4.10-5.30)
[2020-03-11 08:50] LABS: HEMATOCRIT 31.2 % (37.0-47.0)
[2020-03-11 09:04] LABS: ALBUMIN 3.2 gm/dL (3.5-5.0); BILIRUBIN,TOTAL 0.9 mg/dL (0.0-1.0); CALCIUM 9.2 mg/dL (8.4-10.2); CREATININE, serum 0.61 (0.52-1.25); POTASSIUM 3.5 mmol/L (3.4-5.0); TOTAL PROTEIN 6.6 gm/dL (6.4-8.2)
--- NOTE | 2020-03-11 10:54 | NUR ---
Pt assessment is completed and charted, roomair, alert and oriented. Meds provided as per MAR and liquid breakfast provided, tolerated well. I/V fluid is running without complications. No N/V/D, pain, numbness, tingling as per pt at this time. Her daughter is in her bedside. No further needs at this time.
--- NOTE | 2020-03-11 11:26 | NUR ---
AN attended clinical rounds with the team. The patient will have her diet advanced this AM and if she does well she may discharge today. The patient states that she walked down the [place] and that is felt good to get out and walk. The patient is interested in [facility]. AN presented Medicare.gov's list of accounts receivable specialist. The patient would like to wait for her daughter to return then make a decision. Clair, [facility] Director contacted AN and states that she will not take the patient due to she back at baseline. AN informed the patient and the team.
--- NOTE | 2020-03-11 11:36 | NUR ---
The patient had [facility] in the past and would like to a referral sent to them again. Referral sent. Awaiting response.
[2020-03-11 11:55] VITALS: BP 175/78; PULSE 82; TEMP 98
--- NOTE | 2020-03-11 14:46 | NUR ---
The patient is to discharge home today, 03/11 with [facility]. Louisa reports they will visit the patient on Saturday. The patient and the patient's daughter, Lindy were agreeable to this. They like the nurse with [facility]. Lindy had some concerns about the patient being at home over the weekend since she has to work all day. AN offered to give information on [facility] for private duty services, she declined. Lindy will have a neighbor look in on the patient. Lindy states she is in the process of contacting [address] [place] [address] for extra assistance at home. AN discussed applying for Medicaid. Lindy states the patient has been denied twice. SW to contact Regla Alonzo with finance about this patient. AN provided [employer] transportation application for the patient. There are no additional needs at this time.
--- NOTE | 2020-03-11 18:44 | NUR ---
Pt got discharged and went home with her daughter. Discharged process completed, I/V canula taken out. Wheeled the pt down to ER dept.
== END 2020-03-11 18:35 | disposition home or self-care (01) | DRG 440 ==
LOC: COL.ER 08:58 → MEDICAL 10:58
PROVIDERS: Emergency Medicine; Physician Assistant; ADMIT Hospitalist
DX: K85.10 Biliary acute pancreatitis without necrosis or infection (principal); M19.90 Unspecified osteoarthritis, unspecified site; I10 Essential (primary) hypertension; D64.9 Anemia, unspecified; R07.9 Chest pain, unspecified; L30.4 Erythema intertrigo
CPT/HCPCS: 99222-AI; 99231-AI; 99239; J2405; J3010; J7030; Q9967

== ENCOUNTER → 2020-07-11 | Outpatient (CLI) | payer MEDICARE ==
[~2020-07-11] MED LIST changes: +MYSOLINE 5050 MG/TAB PO
== END ==
LOC: COL.CARD 12:10 → COL.RAD 13:29 → COL.CARD 13:29
DX: Z01.818 Encounter for other preprocedural examination (principal)

== ENCOUNTER 2020-08-08 10:37 | Outpatient (RCR) | payer MEDICARE | END 2020-10-03 | disposition home or self-care (01) | LOC: MKS.ESL.PT | DX: Z96.641 Presence of right artificial hip joint (principal) ==

== ENCOUNTER → 2020-08-18 | Outpatient (CLI) | payer MEDICARE ==
[2020-08-18 19:22] LABS: BASO # 0.1 (0.0-0.2); BASO % 0.9 % (0.0-2.0); EOS # 0.3 (0.0-0.7); EOS % 4.5 % (0-4.0); GRAN % 71.6 % (42.2-75.2); LYMPH # 0.9 (1.2-3.4); LYMPH % 13.2 % (20.0-51.0); MEAN CELL VOLUME 91 fl (80.0-100.0); MEAN CORPUSCULAR HGB CONC 33 g/dl (33.0-37.0); MONO # 0.6 (0.1-0.6); MONO % 9.1 % (1.7-9.3); PLATELET COUNT 368 K/mm3 (130-400); RED BLOOD COUNT 2.92 M/mm3 (4.10-5.30); REDCELL DISTRIBUTION WIDTH-CV 15.5 % (11.5-14.5)
[2020-08-18 19:23] LABS: HEMATOCRIT 26.5 % (37.0-47.0); HEMOGLOBIN 8.6 g/dl (12.5-16.0); MEAN CORPUSCULAR HEMOGLOBIN 29 pg (27.0-31.0)
[2020-08-18 19:25] LABS: ALBUMIN 3.6 gm/dL (3.5-5.0); BILIRUBIN,TOTAL 0.5 mg/dL (0.0-1.0); CALCIUM 8.8 mg/dL (8.4-10.2); CREATININE, serum 1.09 (0.52-1.25); POTASSIUM 4.7 mmol/L (3.4-5.0); TOTAL PROTEIN 6.4 gm/dL (6.4-8.2)
[2020-08-18 19:55] LABS: THYROID STIMULATING HORMONE 2.19 uIU/mL (0.465-4.680)
== END ==
LOC: ZCOL.LAB 18:54
PROVIDERS: Family Medicine
DX: Z13.228 Encounter for screening for other metabolic disorders (principal); I77.0 Arteriovenous fistula, acquired; R94.6 Abnormal results of thyroid function studies

== ENCOUNTER → 2020-12-06 | Outpatient (CLI) | payer MEDICARE ==
[~2020-12-06] MED LIST changes: +ANUSOL HC CREAM30 GM TOP; +ASPIRIN 81M81 MG/TA2 PO; +DOXYCYCLINE 10100 MG PO; +INDERAL 20MG20 MG PO; +NORVASC 5MG5 MG/TAB PO; +PRINIVIL20 MG PO; +TYLENOL 500MG500 MG PO
== END ==
LOC: COL.VAS
DX: I70.201 Unspecified atherosclerosis of native arteries of extremities, right leg (principal); R60.0 Localized edema; R09.89 Other specified symptoms and signs involving the circulatory and respiratory systems

== ENCOUNTER 2021-02-18 14:41 | Inpatient (IN) | payer MEDICARE ==
[~2021-02-18] VITALS: Ht 162.6 cm; Wt 60.0 kg
[~2021-02-18 14:41] MED LIST changes: -ANUSOL HC CREAM30 GM TOP; -ASPIRIN 81M81 MG/TA2 PO; -DOXYCYCLINE 10100 MG PO; -INDERAL 20MG20 MG PO; -NORVASC 5MG5 MG/TAB PO; -PRINIVIL20 MG PO; -TYLENOL 500MG500 MG PO
[2021-02-18 15:38] LABS: ALBUMIN 3.9 gm/dL (3.5-5.0); BILIRUBIN,TOTAL 0.7 mg/dL (0.0-1.0); CALCIUM 9.2 mg/dL (8.4-10.2); CREATININE, serum 0.75 (0.52-1.25); HEMOGLOBIN 10.9 g/dl (12.5-16.0); MEAN CELL VOLUME 86 fl (80.0-100.0); MEAN CORPUSCULAR HEMOGLOBIN 29 pg (27.0-31.0); MEAN CORPUSCULAR HGB CONC 33 g/dl (33.0-37.0); MEAN PLATELET VOLUME 10.4 fl (7.4-10.4); PLATELET COUNT 195 K/mm3 (130-400); POTASSIUM 4.3 mmol/L (3.4-5.0); RED BLOOD COUNT 3.79 M/mm3 (4.10-5.30); REDCELL DISTRIBUTION WIDTH-CV 16.1 % (11.5-14.5); TOTAL PROTEIN 7.9 gm/dL (6.4-8.2)
[2021-02-18 15:40] LABS: HEMATOCRIT 32.6 % (37.0-47.0)
[2021-02-18 16:11] LABS: BAND 8 % (0-10); EOSINOPHIL 1 % (0-4); LYMPHOCYTE 6 % (20.0-51.0); NEUTROPHILS 82 % (42.0-75.2)
[2021-02-18 16:12] LABS: HYPOCHROMIA 1+
[2021-02-18 16:21] LABS: C-REACTIVE PROTEIN 41.6 mg/dL (0.0-0.9)
[2021-02-18 18:18] VITALS: BP 159/70; PULSE 81; TEMP 99.3
[2021-02-18] MEDS ORDERED: INDERAL 20MG20 MG PO (19:34)
[2021-02-18] MEDS ORDERED: ASPIRIN 81M81 MG/TA2 PO (19:35)
[2021-02-18] MEDS ORDERED: NORVASC 5MG5 MG/TAB PO (19:36)
[2021-02-18] MEDS ORDERED: PRINIVIL20 MG PO (19:37)
[2021-02-18] MEDS ORDERED: TYLENOL 500MG500 MG PO (19:38)
[2021-02-18 20:08] VITALS: BP 117/90; PULSE 89; TEMP 99.8
--- NOTE | 2021-02-18 21:07 | NUR ---
Vancomycin Initial Dosing Pharmacy Note Ordering provider: Guille Saez MD 85 YO F Indication/duration: SSTI (7 DAYS) GOAL: 10-20 DOSING HX: NONE IDENTIFIED BMI: 22.7 WT: 60 KG SCR: 0.75 ESTCRCL~ 53 ML/MIN T 1/2 ~ 14H TMAX: 99.8 WBC: 15 CRP: 41.6 MICRO PENDING NO IMAGING AVAILABLE AT THIS TIME PT RECEIVED A LOADING DOSE OF 1.5 GM X1. WILL START A MAINTENANCE DOSE OF 750MG Q18H. WILL FOLLOW RENAL FUNCTION, MICRO, AND PLAN OF CARE FOR NEED TO ADJUST THERAPY. THANK YOU FOR THIS DOSING CONSULT!
--- NOTE | 2021-02-18 21:42 | NUR ---
Patient arrived from ER to medical floor at shift change. Patient assessed around 1930. Updated med rec with patient and daughter. Patient is alert and oriented x 4, and able to make needs known. High fall risk precautions in place. Bed alarm on. Peripheral IV to right forearm with fluids running per orders. Site without redness, warmth, swelling, and pain. Denies having SOB and dyspnea. LS CTA. Respirations even and unlabored. HRR. Telemetry in place: normal sinus. Capillary refill less than 3 seconds. Non-tenting skin turgor. BSAx4. Abdomen soft and non-tender. Continent of bowel and bladder, wears panty liner. Patient's skin is very dry. RLE has 2+ edema, very red, and warm to touch from the knee down. Left foot with 1+ edema, red, and warm to touch. Opened ulcer to coccyx. Mepilex applied to area. Patient's heels are sore, and each one has a calloused/hard area. Heels floating on pillow. Recieved IV antiboitic per orders. All questions from patient and daughter answered. Patient resting in bed with call light within reach. Ambulated to bathroom with one assist with use of cane. Gait weak/slow.
[2021-02-19 00:07] VITALS: BP 117/56; PULSE 76; TEMP 98.3
[2021-02-19 04:36] VITALS: BP 126/64; PULSE 77; TEMP 98.6
--- NOTE | 2021-02-19 05:30 | NUR ---
Patient has been resting in bed with call light within reach. Has denied having pain and discomfort this shift. Voices no questions, needs, or concerns at this time. Resting in bed with call light within reach. IV fluids continue per orders, and received antibiotics per orders.
[2021-02-19 06:25] LABS: BASO % 0.2 % (0.0-2.0); EOS # 0.2 (0.0-0.7); EOS % 2.5 % (0-4.0); GRAN # 6.9 (1.4-6.5); GRAN % 84.5 % (42.2-75.2); LYMPH # 0.6 (1.2-3.4); LYMPH % 6.8 % (20.0-51.0); MEAN CELL VOLUME 85 fl (80.0-100.0); MEAN CORPUSCULAR HGB CONC 33 g/dl (33.0-37.0); MEAN PLATELET VOLUME 9.4 fl (7.4-10.4); MONO # 0.4 (0.1-0.6); PLATELET COUNT 250 K/mm3 (130-400); RED BLOOD COUNT 2.96 M/mm3 (4.10-5.30); REDCELL DISTRIBUTION WIDTH-CV 16.1 % (11.5-14.5)
[2021-02-19 06:29] LABS: HEMATOCRIT 25.2 % (37.0-47.0); HEMOGLOBIN 8.3 g/dl (12.5-16.0); MEAN CORPUSCULAR HEMOGLOBIN 28 pg (27.0-31.0)
[2021-02-19 06:39] LABS: CREATININE, serum 0.68 (0.52-1.25); POTASSIUM 3.5 mmol/L (3.4-5.0)
[2021-02-19 08:44] VITALS: BP 159/71; PULSE 83; TEMP 98.9
--- NOTE | 2021-02-19 10:59 | NUR ---
Assessment completed, alert/oriented, vital signs stable, denies pain or discomfort, stated her right heel is sore if push on it or it is resting against something, heels floated and she said that makes a big difference, heart RRR/distal pulses, lungs CTA/ denies resp.difficulty, patient has stg.II pressure sore to her sacrum/ dressing applied, WBC improved to 8 and she is afebrile, IV abx and IVF infusing, patient tolerating PO intake well, Na low and limiting free water intake, assisting with diet needs, she ambulated with a walker and was slow but fairly steady/ PT and OT ordered, she dneies needs, will continue to monitor
[2021-02-19 11:22] VITALS: BP 142/70; PULSE 78; TEMP 98.4
[2021-02-19 16:18] LABS: HEMATOCRIT 24.7 % (37.0-47.0); HEMOGLOBIN 8.2 g/dl (12.5-16.0)
[2021-02-19 16:33] VITALS: BP 154/61; PULSE 68; TEMP 98.2
--- NOTE | 2021-02-19 19:00 | NUR ---
Received report from Yang. Patient in bed, eating her dinner. With IV on right forearm infusing NS at 75ml/hr. Denies needs at this time.
[2021-02-19 19:22] VITALS: BP 128/60; PULSE 66; TEMP 99
--- NOTE | 2021-02-19 20:40 | NUR ---
Assesment done. Assisted patient to the bathroom. She denies pain on her legs. Right leg is warm to touch with patches of redness from foot to knee. Changed patient's gown to yellow. Bed alarm on. Call light within reach. Patient aware of free water restriction.
[2021-02-20] VITALS (7 sets, daily range): BP systolic 130–166; BP diastolic 60–75; PULSE 53–64; TEMP 98–98.5
--- NOTE | 2021-02-20 06:03 | NUR ---
Patient had uneventful night. She denies pain. Dressing on her buttocks changed this morning.
[2021-02-20 06:26] LABS: BASO % 0.4 % (0.0-2.0); EOS # 0.4 (0.0-0.7); EOS % 6.9 % (0-4.0); GRAN # 3.8 (1.4-6.5); GRAN % 71.2 % (42.2-75.2); LYMPH # 0.7 (1.2-3.4); LYMPH % 13.1 % (20.0-51.0); MEAN CELL VOLUME 88 fl (80.0-100.0); MEAN CORPUSCULAR HGB CONC 33 g/dl (33.0-37.0); MEAN PLATELET VOLUME 9.2 fl (7.4-10.4); MONO # 0.4 (0.1-0.6); MONO % 7.5 % (1.7-9.3); PLATELET COUNT 260 K/mm3 (130-400); RED BLOOD COUNT 2.99 M/mm3 (4.10-5.30); REDCELL DISTRIBUTION WIDTH-CV 15.9 % (11.5-14.5)
[2021-02-20 06:38] LABS: HEMATOCRIT 26.3 % (37.0-47.0); HEMOGLOBIN 8.7 g/dl (12.5-16.0); MEAN CORPUSCULAR HEMOGLOBIN 29 pg (27.0-31.0)
[2021-02-20 06:46] LABS: CALCIUM 8.3 mg/dL (8.4-10.2); CREATININE, serum 0.57 (0.52-1.25); POTASSIUM 3.8 mmol/L (3.4-5.0)
--- NOTE | 2021-02-20 07:00 | NUR ---
Report with MARY Dougherty. Pt resting in bed, calling for breakfast, denies pain or needs at this time. IVF's infusing per orders without s/s of complications. Call light in reach. Bed alarm on.
[2021-02-20 07:21] LABS: C-REACTIVE PROTEIN 18.2 mg/dL (0.0-0.9)
--- NOTE | 2021-02-20 08:25 | NUR ---
Assessment complete. Pt sitting up in bed after eating breakfast, A&O x 3, denies pain at this time. IVF's infusing per orders through right forearm site without s/s of complications. Right lower ext with redness and warmth from toes to knee in patches, pt states "the knee is getting better." No further needs reported. Call light in reach. Bed alarm on.
--- NOTE | 2021-02-20 10:14 | NUR ---
IVF's stopped and disconnected per orders. Pt's daughter at bedside, asking questions about discharge plan/disposition. Provider aware and social work notified.
--- NOTE | 2021-02-20 10:37 | NUR ---
PT notified the clinical team that the patient is back at her baseline and would recommend that she would be safe to return home with home health. The hospitalist then notified SW that the patient's daughter is still concerned about the patient's safety at home. AN then met with the patient and her daughter, Lindy (ph#[phone]), to discuss discharge plan. The patient lives alone in an apartment in [place]. Lindy also lives in [place]. The patient reports needing some assistance with bathing and has a cane and walker. She reports that she also receives home health services from [facility]. Lindy reports that [facility] has been short staffed and that they have not been able to come out and see the patient much. She states that they would be interested in a different home health agency with increased care. SW contacted Janeen at [facility] and confirmed services. They were providing wound care and jail. The patient's primary care provider is Landy Zapata and she receives her medications from [facility]. The patient's DPOA-HC is in EMR and it designates Lindy. SW discussed PT's recommendation. Lindy reports that the patient was very fatigued after working with therapy and she has stairs to get to her apartment. Lindy reports that they would be interested in trying to get the patient into SNF at 1) [facility] 2) [facility]. If [facility] facilities cannot take, then they would plan on returning home with increased home health services from a different home health agency. The patient was agreeable to the plan. AN contacted and faxed a referral to [facility] and [facility]. Awaiting screens. *Discharge plan: SNF vs home health*
--- NOTE | 2021-02-20 11:51 | NUR ---
Mary, at [facility], reports that they are able to accept the patient for a skilled stay. SW to inform the patient and her daughter.
--- NOTE | 2021-02-20 13:42 | NUR ---
Pt c/o discomfort in back and bottom, assisted with repositioning and back assessed. Redness and warmth covering middle of back which pt reports being very itchy, recently applied Aquaphor per recommendations from research rn spec. Pt and pt's daughter ask about something to assist with itchiness and pt agrees to PRN Tylenol to help with discomfort. Provider notified of pt's c/o. no further needs reported. Call light in reach.
--- NOTE | 2021-02-20 14:02 | NUR ---
Clarence, at [facility], reports that they are able to accept the patient for a skilled stay.
--- NOTE | 2021-02-21 00:48 | NUR ---
Shift assessment completed. Patient alert and oriented. Patient deneis any pain or discomfort. Denies SOB, N/V, dizziness, or headache. Right lower leg, right foot, right knee area reddened. Patient denies any pain to her right lower leg. All scheduled meds given per NOV. Call light within reach.
[2021-02-21 04:08] VITALS: BP 168/72; PULSE 60; TEMP 98.1
[2021-02-21 05:44] VITALS: BP 136/60; PULSE 63
--- NOTE | 2021-02-21 06:00 | NUR ---
Patient's BP was 168/72 at 04:08 am. Called MONIQUE Nava to get order for PRN hydralazine. PRN hydralazine given via IV. BP recheck was 136/60 at 05:44 am. Patient slept well. No acute distress noted. Call light within reach.
[2021-02-21 08:01] VITALS: BP 155/65; PULSE 62; TEMP 97.6
[2021-02-21] MEDS ORDERED: DOXYCYCLINE 10100 MG PO (08:30)
[2021-02-21] MEDS ORDERED: ANUSOL HC CREAM30 GM TOP (08:30)
--- NOTE | 2021-02-21 09:27 | NUR ---
Assessment completed, alert/oriented, vital signs stable, denies pain or discomfort this morning, I have helped her up to the bathroom and she appears to be ambulating better than when she first arrived, her RLE redness and inflammation looks to be improving as well, it is still warmer to touch than the left, patient denies pain or discomfort in that RLE, US was negative for DVT, heart RRR and pedal pulses aer palpable, lungs CTA/no reps.difficulty, I have helped her order shea, she has been accepted to [facility] SNF, will get a COVID swab for placmeent purposes
--- NOTE | 2021-02-21 10:02 | NUR ---
The patient is to discharge today, 02/21, to [facility] for [facility] skilled stay. Transportation was scheduled around 1300, via [facility]. AN informed the patient, her RN, and the patient's daughter (Lindy) of the time, over the phone. They were all agreeable to the time. AN also presented and read the IM form outloud to the patient. The patient verbalized understanding and gave AN approval to sign the form on her behalf. AN provided her with a copy. No additional needs at this time.
--- NOTE | 2021-02-21 10:03 | NUR ---
Initial visit; Patient thanked Supervisor Net Making for visiting her and offering God's blessings and to keep her in Supervisor Net Making's prayers. Patient not happy about going to [facility] for physical therapy but knows she has to go. Supervisor Net Making encouraged her to work hard at getting better.
[2021-02-21 12:06] VITALS: BP 155/65; PULSE 62; TEMP 97.6
--- NOTE | 2021-02-21 15:06 | NUR ---
I called report to recieving nurse at [facility] facility, IV and tele removed prior to discharge, daughter present at time of discahrge, leaving with [facility] personel
== END 2021-02-21 15:07 | DRG 603 ==
LOC: COL.ER 14:41 → MEDICAL 16:36
PROVIDERS: Physician Assistant; ADMIT Student in an Organized Health Care Education/Training Program
DX: L03.115 Cellulitis of right lower limb (principal); E87.1 Hypo-osmolality and hyponatremia; R25.1 Tremor, unspecified; D50.0 Iron deficiency anemia secondary to blood loss (chronic); M19.90 Unspecified osteoarthritis, unspecified site; I10 Essential (primary) hypertension; L29.9 Pruritus, unspecified
CPT/HCPCS: 99222-AI; 99232-AI; 99239; J0360; J0692; J1650; J2543; J3370; J7030; J7050

== ENCOUNTER → 2021-06-26 | Outpatient (CLI) | payer MEDICARE ==
[~2021-06-26] MED LIST changes: +ANUSOL HC CREAM30 GM TOP; +ASPIRIN 81M81 MG/TA2 PO; +DOXYCYCLINE 10100 MG PO; +INDERAL 20MG20 MG PO; +NORVASC 5MG5 MG/TAB PO; +PRINIVIL20 MG PO; +TYLENOL 500MG500 MG PO
[2021-06-26 10:19] LABS: HEMOGLOBIN 11.6 g/dl (12.5-16.0); MEAN CELL VOLUME 89 fl (80.0-100.0); MEAN CORPUSCULAR HEMOGLOBIN 30 pg (27.0-31.0); MEAN CORPUSCULAR HGB CONC 34 g/dl (33.0-37.0); MEAN PLATELET VOLUME 8.7 fl (7.4-10.4); PLATELET COUNT 309 K/mm3 (130-400); RED BLOOD COUNT 3.87 M/mm3 (4.10-5.30); REDCELL DISTRIBUTION WIDTH-CV 14.5 % (11.5-14.5)
[2021-06-26 10:23] LABS: HEMATOCRIT 34.5 % (37.0-47.0)
[2021-06-26 10:32] LABS: CALCIUM 9.7 mg/dL (8.4-10.2); CREATININE, serum 0.92 mg/dL (0.57-1.11); POTASSIUM 4.6 mmol/L (3.5-4.5)
== END ==
LOC: COL.LAB 09:04
DX: Z01.812 Encounter for preprocedural laboratory examination (principal); Z11.59 Encounter for screening for other viral diseases; Z20.822 Contact with and (suspected) exposure to COVID-19

== ENCOUNTER → 2021-08-14 | Outpatient (CLI) | payer MEDICARE ==
[~2021-08-14] MED LIST changes: +HYGROTON 2525 MG/TAB PO; +LIPITOR20 MG PO; +PLAVIX 75MG TAB75 MG PO; +TOPAMAX 25MG25 M1 PO
[2021-08-14 16:01] LABS: CALCIUM 8.9 mg/dL (8.4-10.2); CREATININE, serum 0.81 mg/dL (0.57-1.11); POTASSIUM 3.9 mmol/L (3.5-4.5)
== END ==
LOC: ZCOL.LAB 13:25
PROVIDERS: Internal Medicine Interventional Cardiology
DX: Z01.812 Encounter for preprocedural laboratory examination (principal); I72.9 Aneurysm of unspecified site

== ENCOUNTER 2021-09-10 19:58 | Inpatient (IN) | payer MEDICARE ==
[~2021-09-10] VITALS: Ht 162.6 cm; Wt 58.5 kg
[~2021-09-10 19:58] MED LIST changes: -HYGROTON 2525 MG/TAB PO; -LIPITOR20 MG PO; -PLAVIX 75MG TAB75 MG PO; -TOPAMAX 25MG25 M1 PO
[2021-09-10 20:52] LABS: BASO # 0.1 K/mm3 (0.0-0.2); BASO % 0.9 % (0.0-2.0); EOS # 0.3 K/mm3 (0.0-0.7); EOS % 3.7 % (0-4.0); GRAN # 6.1 K/mm3 (1.4-6.5); GRAN % 78.4 % (42.2-75.2); LYMPH # 0.8 K/mm3 (1.2-3.4); LYMPH % 10.8 % (20.0-51.0); MEAN CELL VOLUME 92 fl (80.0-100.0); MEAN CORPUSCULAR HGB CONC 31 g/dl (33.0-37.0); MEAN PLATELET VOLUME 8.8 fl (7.4-10.4); MONO # 0.5 K/mm3 (0.1-0.6); MONO % 5.8 % (1.7-9.3); PLATELET COUNT 346 K/mm3 (130-400); REDCELL DISTRIBUTION WIDTH-CV 14.5 % (11.5-14.5)
[2021-09-10 20:56] LABS: HEMATOCRIT 25.7 % (37.0-47.0); MEAN CORPUSCULAR HEMOGLOBIN 29 pg (27.0-31.0)
[2021-09-10 20:58] LABS: INR 1.2 (0.8-3.0); PROTHROMBIN TIME 12.8 SECONDS (9.7-12.8)
[2021-09-10 21:10] LABS: ALANINE AMINOTRANSFERASE < 6 U/L (0-55); ALBUMIN 3.2 gm/dL (3.4-4.8); ALKALINE PHOSPHATASE 71 U/L (40-150); ANION GAP 9 mmol/L (7-16); AST,SGOT 8 U/L (5-34); BILIRUBIN,TOTAL 0.2 mg/dL (0.2-1.2); BLOOD UREA NITROGEN 19 mg/dL (10-20); C-REACTIVE PROTEIN 0.39 mg/dL (0.00-0.50); CALCIUM 8.4 mg/dL (8.4-10.2); CARBON DIOXIDE 22 mmol/L (23-31); CHLORIDE 104 mmol/L (98-107); CREATINE KINASE 42 U/L (29-168); CREATININE, serum 1.02 mg/dL (0.57-1.11); GLUCOSE 181 mg/dL (70-99); LIPASE 30 U/L (8-78); POTASSIUM 3.4 mmol/L (3.5-4.5); SODIUM 135 mmol/L (136-145); TOTAL PROTEIN 6.3 gm/dL (6.2-8.1)
[2021-09-10 21:16] LABS: TROPONIN-I 0.011 ng/mL (0.00-0.033)
[2021-09-10 23:30] VITALS: BP 140/53; PULSE 58; TEMP 98.1
--- NOTE | 2021-09-10 23:30 | NUR ---
pt admitted to room 311 from ED per cart, transferred to bed with 1 assist, pt alert and oriented x4, iv present in left hand with zosyn infusing from ED, pt oriented to room and POC, MONIQUE Varma working on orders. pt has quarter sized erupted area in left groin, old blood on dressing from ED, dressing changed. pt placed in hospital gown.
[2021-09-10] MEDS ORDERED: PRINIVIL20 MG PO (23:54)
[2021-09-10] MEDS ORDERED: MYSOLINE 5050 MG/TAB PO (23:55)
[2021-09-10] MEDS ORDERED: TOPAMAX 25MG25 M1 PO (23:57)
[2021-09-10] MEDS ORDERED: LIPITOR20 MG PO (23:59)
[2021-09-11] MEDS ORDERED: PLAVIX 75MG TAB75 MG PO
[2021-09-11] MEDS ORDERED: HYGROTON 2525 MG/TAB PO (00:01)
[2021-09-11 04:36] LABS: BASO # 0.1 K/mm3 (0.0-0.2); BASO % 0.9 % (0.0-2.0); EOS # 0.2 K/mm3 (0.0-0.7); EOS % 3.9 % (0-4.0); GRAN # 3.7 K/mm3 (1.4-6.5); GRAN % 64.1 % (42.2-75.2); LYMPH # 1.3 K/mm3 (1.2-3.4); LYMPH % 21.9 % (20.0-51.0); MEAN CELL VOLUME 88 fl (80.0-100.0); MEAN CORPUSCULAR HGB CONC 33 g/dl (33.0-37.0); MEAN PLATELET VOLUME 8.6 fl (7.4-10.4); MONO # 0.5 K/mm3 (0.1-0.6); MONO % 8.7 % (1.7-9.3); PLATELET COUNT 291 K/mm3 (130-400); RED BLOOD COUNT 2.48 M/mm3 (4.10-5.30); REDCELL DISTRIBUTION WIDTH-CV 14.6 % (11.5-14.5)
[2021-09-11 04:39] LABS: HEMATOCRIT 21.9 % (37.0-47.0); HEMOGLOBIN 7.2 g/dl (12.5-16.0); MEAN CORPUSCULAR HEMOGLOBIN 29 pg (27.0-31.0)
[2021-09-11 04:55] VITALS: BP 119/50; PULSE 63; TEMP 98.2
[2021-09-11 04:58] LABS: CALCIUM 8.4 mg/dL (8.4-10.2); CREATININE, serum 0.95 mg/dL (0.57-1.11); POTASSIUM 4.4 mmol/L (3.5-4.5)
--- NOTE | 2021-09-11 06:33 | NUR ---
DR Cooper notified of consult
--- NOTE | 2021-09-11 07:29 | NUR ---
Report received from MARY Morgan. Pt. resting in bed at this time. histotechnician in to complete ultrasound of left groin. Dressing removed so drinking water technician could access groin area. Dried blood drainage noted. Plan to place a new non-adherent dressing when test is over. This RN introduced self to pt. and let her know this job specification writer would be the nurse for today.
[2021-09-11 07:35] VITALS: BP 122/56; PULSE 54; TEMP 97.9
--- NOTE | 2021-09-11 08:19 | NUR ---
New non-adherent dressing placed to left groin area. Pt. reports she feels comfortable and denies needs. Call light and belongings in reach.
[2021-09-11 09:27] LABS: HEMATOCRIT 22.7 % (37.0-47.0); HEMOGLOBIN 7.1 g/dl (12.5-16.0)
--- NOTE | 2021-09-11 10:22 | NUR ---
group social worker met with patient's daughter Lindy ([phone]) due to the patient getting an echo. Lindy reports that the patient lives at home alone in [facility]. Patient can do her activities of daily living, but at this time does not have good hygiene unless she has someone there to push her. Patient utilizes both a cane and a walker to assist with mobility and has no oxygen needs within the home. Patient does have a DP- established appointing her daughter Lindy and a copy of it is on file. Lindy reports to concerns about the patient's self care. States that she has been actively present in the patient's life but due to her occupational and academic schedule she has had limited time to help her mother. Lindy would like for the patient to go to [facility] to get better before going home. She is open to SNF as long as it is not [facility] or [facility]. HH would be her last option. Referral sent to Clair in [facility]. Discharge plan: Home pending PT/OT rec's. Would like [facility]
--- NOTE | 2021-09-11 11:19 | NUR ---
Initial visit attempt; Associate Professor Of History spoke with patient's daughter, letting her know of the availability of spiritual care. Associate Professor Of History will keep her mother Bela in her prayers.
[2021-09-11 11:37] VITALS: BP 118/45; PULSE 55; TEMP 98.2
[2021-09-11 11:39] VITALS: BP 123/46
--- NOTE | 2021-09-11 15:00 | NUR ---
Pt. assisted to the bathroom and this RN noticed pt.'s buttocks reddened and peeling. A small spot in between pt.'s buttocks is open. New foam dressing applied. Pt.'s daughter Lindy reports pt. has had the sore on her buttocks for a long time.
[2021-09-11 15:02] LABS: HEMOGLOBIN 8.6 g/dl (12.5-16.0)
[2021-09-11 16:30] VITALS: BP 126/52; PULSE 60; TEMP 98.7
--- NOTE | 2021-09-11 18:00 | NUR ---
Pt. has had an uneventful evening. IVF infusing. Pt.'s daughter Lindy in most of the day today with her mom. Dr. Cooper in to see patient today. Needs addressed, call light and belongings in reach.
[2021-09-11 18:23] LABS: HEMATOCRIT 25.1 % (37.0-47.0)
[2021-09-11 20:18] VITALS: BP 118/54; PULSE 52; TEMP 98.2
[2021-09-12] VITALS (7 sets, daily range): BP systolic 116–146; BP diastolic 45–77; PULSE 49–91; TEMP 97.7–98.4
[2021-09-12 06:49] LABS: BASO # 0.1 K/mm3 (0.0-0.2); BASO % 1.1 % (0.0-2.0); EOS # 0.3 K/mm3 (0.0-0.7); GRAN # 2.8 K/mm3 (1.4-6.5); GRAN % 61.5 % (42.2-75.2); LYMPH % 21.7 % (20.0-51.0); MEAN CELL VOLUME 90 fl (80.0-100.0); MEAN CORPUSCULAR HGB CONC 32 g/dl (33.0-37.0); MONO # 0.4 K/mm3 (0.1-0.6); MONO % 8.5 % (1.7-9.3); PLATELET COUNT 283 K/mm3 (130-400); RED BLOOD COUNT 2.56 M/mm3 (4.10-5.30); REDCELL DISTRIBUTION WIDTH-CV 14.6 % (11.5-14.5)
[2021-09-12 06:53] LABS: HEMATOCRIT 22.9 % (37.0-47.0); HEMOGLOBIN 7.4 g/dl (12.5-16.0); MEAN CORPUSCULAR HEMOGLOBIN 29 pg (27.0-31.0)
--- NOTE | 2021-09-12 07:00 | NUR ---
Bedside shift change complete with MARY Harper. Pt. requesting breakfast this AM. Breakfast ordered. Pt. denies further needs at this time. Call light and belongings in reach.
[2021-09-12 07:04] LABS: CALCIUM 8.5 mg/dL (8.4-10.2); CREATININE, serum 1.03 mg/dL (0.57-1.11)
--- NOTE | 2021-09-12 07:16 | NUR ---
IVF dc'd this shift, IV to INT. taking po well, up to restroom with 1 assist using cane. pt has low resting HR this shift, upper 40s reported per tele, up to 60's when awake. no bleeding from left groin this shift, dressing CDI. c/o mild discomfort but refuses any meds.
--- NOTE | 2021-09-12 10:21 | NUR ---
Initial visit; Patient thanked Assembler Brazer for looking in on her and offering God's blessing.
--- NOTE | 2021-09-12 11:59 | NUR ---
Verbal order obtained to hold pt.'s propanalol due to low heart rate. Pt. has had hospitalist team and Dr. Root, and TREE FALLER Aruna in to see the patient today. Plan for pt. to be transferred to an alternate facility so the patient can see a vascular surgeon. Pt.'s daughter Lindy updated with plan of care. This RN is waiting to hear back from Dr. Saez regarding paperwork from [facility].
--- NOTE | 2021-09-12 12:36 | NUR ---
Per EARTH SCIENCE FACULTY MEMBER Aruna Hager, patient accepted for transfer to [facility]. Clinical documentaion faxed to #[phone]. Dr. Osullivan is the accepting physician. Amber garcia requested
--- NOTE | 2021-09-12 17:33 | NUR ---
Patient had a loose BM and nurse assisted the patient to the bathroom. Patient ambulated with a standby assist with cane. A&Ox3. VSS. IV CDI, fluids infusing. Denies pain and discomfort. Nursing staff repositioned patient for dinner. Call light within reach. Bed alarm on. groin site CDI.
[2021-09-12 19:19] LABS: HEMATOCRIT 25.2 % (37.0-47.0); HEMOGLOBIN 8.1 g/dl (12.5-16.0)
--- NOTE | 2021-09-12 19:37 | NUR ---
Patient resting in bed, A&Ox4. VSS. IV CDI. Denies pain and discomfort. LF Groin site CDI. No further needs expressed. Call light within reach. Bed alarm on
--- NOTE | 2021-09-12 23:40 | NUR ---
Received bed side reports from MARY Victoria at 11 pm. Patient A/Ox3. Patient denies any pain or discomfort. No acute distress noted. Left groin site dressing C/D/I. IV Zosyn currently infusing via right forearm IV site. Will continue to monitor.
[2021-09-13] VITALS (7 sets, daily range): BP systolic 101–141; BP diastolic 49–80; PULSE 51–63; TEMP 97.8–98.9
[2021-09-13 08:07] LABS: CREATININE, serum 1.33 mg/dL (0.57-1.11); POTASSIUM 3.9 mmol/L (3.5-4.5)
[2021-09-13 08:15] LABS: BASO % 0.9 % (0.0-2.0); EOS # 0.4 K/mm3 (0.0-0.7); EOS % 8.6 % (0.0-4.0); GRAN # 2.6 K/mm3 (1.4-6.5); LYMPH % 22.7 % (20.0-51.0); MEAN CELL VOLUME 91 fl (80.0-100.0); MEAN CORPUSCULAR HGB CONC 32 g/dl (33.0-37.0); MONO # 0.4 K/mm3 (0.1-0.6); MONO % 8.6 % (1.7-9.3); PLATELET COUNT 282 K/mm3 (130-400); RED BLOOD COUNT 2.45 M/mm3 (4.10-5.30); REDCELL DISTRIBUTION WIDTH-CV 14.7 % (11.5-14.5)
[2021-09-13 08:18] LABS: HEMATOCRIT 22.3 % (37.0-47.0); HEMOGLOBIN 7.2 g/dl (12.5-16.0); MEAN CORPUSCULAR HEMOGLOBIN 29 pg (27-31)
--- NOTE | 2021-09-13 10:14 | NUR ---
Patient laying in bed upon entering the room. A dressing change was done on the patient's IV. Patient's dressings in the left groin and bottom are CDI. Patient does well w/ ambulating and is a SBA. Call light is w/in reach.
--- NOTE | 2021-09-13 11:08 | NUR ---
Notified by Aruna MYERS who states that the accepting facility is unable to take this patient today due to bed shortages. Physician staff is working closely to find a facility that is able to accept this patient for vascular surgery.
--- NOTE | 2021-09-13 16:07 | NUR ---
Patient moved into the hallway via recliner d/t amritnado warning.
--- NOTE | 2021-09-13 18:04 | NUR ---
Patient has done well today and has not had any complaints/concerns. Patient's left groing dressing remains CDI. Mepilex was removed from patient's bottom, there is some redness and dryness present, with some scabbing present. A thick layer of barrier ointment was applied and dressing was left off per patient's request.
--- NOTE | 2021-09-13 20:00 | NUR ---
PATIENT IS A&O. VSS ON TELE. DENIES PAIN OR NAUSEA. LEFT GROIN DRESSING IS CD&I, NO DRAINAGE NOTED. PATIENT AWAITING TRANSFER FOR VASCULAR SURGEON. STAND BY ASSIST BUT NOTED WEAKNESS. PT/OT CONSULTED. IV ABX INFUSING VIA PUMP INTO LEFT WRIST IV. SUPPER TRAY AT BEDSIDE. EVENING MEDS GIVEN. HEAD TO TOE ASSESSMENT COMPLETE, SEE CHARTING. NO OTHER NEEDS AT THIS TIME. CALL LIGHT IN REACH.
[2021-09-14] VITALS (7 sets, daily range): BP systolic 112–158; BP diastolic 48–61; PULSE 45–65; TEMP 97.5–99
--- NOTE | 2021-09-14 05:37 | NUR ---
Patient slept well throughout the night. VS stable. Left groin site dressing C/D/I. No acute distress noted throughout the night. Call light in reach.
[2021-09-14 07:02] LABS: BASO % 0.6 % (0.0-2.0); EOS # 0.4 K/mm3 (0.0-0.7); EOS % 7.4 % (0.0-4.0); GRAN # 3.1 K/mm3 (1.4-6.5); HEMATOCRIT 23.1 % (37.0-47.0); HEMOGLOBIN 7.5 g/dl (12.5-16.0); LYMPH % 20.4 % (20.0-51.0); MEAN CELL VOLUME 91 fl (80.0-100.0); MEAN CORPUSCULAR HEMOGLOBIN 29 pg (27-31); MEAN CORPUSCULAR HGB CONC 33 g/dl (33.0-37.0); MEAN PLATELET VOLUME 8.9 fl (7.4-10.4); MONO # 0.4 K/mm3 (0.1-0.6); MONO % 8.4 % (1.7-9.3); PLATELET COUNT 278 K/mm3 (130-400); RED BLOOD COUNT 2.55 M/mm3 (4.10-5.30); REDCELL DISTRIBUTION WIDTH-CV 14.7 % (11.5-14.5)
[2021-09-14 07:19] LABS: CALCIUM 9.2 mg/dL (8.4-10.2); CREATININE, serum 1.39 mg/dL (0.57-1.11)
--- NOTE | 2021-09-14 11:38 | NUR ---
Patient laying in bed upon entering the room. Patient uses a cane to ambulate to the bathroom and does well. Patient is slightly unsteady at times. Dressing is CDI in the left groin and patinet is denying any pain at this time.
--- NOTE | 2021-09-14 15:08 | NUR ---
Sw notified by Aruna MYERS that they still don't have an accepting facility for transfer yet.
--- NOTE | 2021-09-14 18:36 | NUR ---
Dr. Root saw the patient today and this RN assissted w/ a dressing change. 4x4 gauze and a tegaderm was applied. Patient has not had any issues with this dressing change, it remains CDI.
--- NOTE | 2021-09-14 20:00 | NUR ---
Initial shift assessment done- states left groin area is sore but denies need for pain meds, Tele on, Up to bathroom with assist, steady on feet, left groin dressing is saturated {2x2,s under tegaderm} tegaderm intact . Dressing changed, new 2x2s applied, no active bleeding noted - new tegaderm applied. will continue to assess.
--- NOTE | 2021-09-14 23:50 | NUR ---
Did call Yeny BLANDON about HR 45/min per Tele, pt has scheduled Inderal at [facility] B/P stable,, will hold Inderal per Yeny BLANDON. Left groin dressing dry and intact since changed earlier in shift.
[2021-09-15 04:11] VITALS: BP 125/60; PULSE 54; TEMP 98.2
--- NOTE | 2021-09-15 06:01 | NUR ---
Quiet night, no requests, Tele on-continues SB with HR 45-50 majority of the night, left groin with no changes- gauze remains dry and intact and area around wound is hard. Will have pelvic US today, VSS
[2021-09-15 06:21] LABS: BASO # 0.1 K/mm3 (0.0-0.2); EOS # 0.4 K/mm3 (0.0-0.7); EOS % 7.2 % (0.0-4.0); GRAN # 2.9 K/mm3 (1.4-6.5); GRAN % 57.3 % (42.2-75.2); LYMPH # 1.3 K/mm3 (1.2-3.4); LYMPH % 25.9 % (20.0-51.0); MEAN CELL VOLUME 89 fl (80.0-100.0); MEAN CORPUSCULAR HGB CONC 32 g/dl (33.0-37.0); MONO # 0.4 K/mm3 (0.1-0.6); MONO % 8.2 % (1.7-9.3); PLATELET COUNT 306 K/mm3 (130-400); RED BLOOD COUNT 2.62 M/mm3 (4.10-5.30); REDCELL DISTRIBUTION WIDTH-CV 14.8 % (11.5-14.5)
[2021-09-15 06:29] LABS: HEMATOCRIT 23.3 % (37.0-47.0); HEMOGLOBIN 7.5 g/dl (12.5-16.0); MEAN CORPUSCULAR HEMOGLOBIN 29 pg (27-31)
--- NOTE | 2021-09-15 06:30 | NUR ---
Does have small amount drainage noted on left groin 2x2,s , marked with marker, Tegaderm remains intact- patient just back from the bathroom- lab has drawn the morning labs.
[2021-09-15 06:44] LABS: CALCIUM 8.8 mg/dL (8.4-10.2); CREATININE, serum 1.18 mg/dL (0.57-1.11); POTASSIUM 3.8 mmol/L (3.5-4.5)
[2021-09-15 08:18] VITALS: BP 123/62; PULSE 56; TEMP 98
[2021-09-15 11:22] VITALS: BP 122/57; PULSE 70; TEMP 97.9
[2021-09-15 15:46] VITALS: BP 129/59; PULSE 66; TEMP 98
--- NOTE | 2021-09-15 16:10 | NUR ---
The patient is to tentatively discharge tomorrow, 09/15. The patient is walking 500 ft with PT with stand by assist. The team is recommending home health. AN contacted the patient's daughter, Lindy, to update. Lindy reports that she does not have transportation and requested if the patient could stay until Saturday or Saturday. AN discussed with Lindy how we would not be able to hold the patient until then, because of a transporation issue. AN reviewed the option of SNF again. Lindy reports that she was looking into SNF, if the patient had surgery. She is okay with the patient returning home with home health. She reports that she prefers [facility], but to check with the patient. Lindy reports that she will come up here tomorrow morning and have her daughter transport her and the patient home tomorrow. AN met with the patient to update and review discharge plan. The patient is in agreement to the plan and with using [facility]. AN presented and read the IM form outloud to the patient. The patient verbalized understanding and signed the form. AN provided her with a copy. AN contacted and faxed a referral to Shruti at [facility]. Shruti reports that they are able to accept the patient for services. *Discharge plan: home with [facility]*
[2021-09-15 20:09] VITALS: BP 133/59; PULSE 66; TEMP 97.9
[2021-09-16] VITALS: PULSE 66
--- NOTE | 2021-09-16 00:30 | NUR ---
Patient alert and oriented. Patient denies pain or SOB. Left groin site dressing moderately saturated. Tegaderm intact. Cleaned left groin wound with normal saline, applied 2x2 gauze and covered with tegaderm. All scheduled meds given per NOV. Call light in reach. Will continue to monitor.
[2021-09-16 04:12] VITALS: BP 128/59; PULSE 94; TEMP 98
[2021-09-16 07:09] LABS: BASO # 0.1 K/mm3 (0.0-0.2); EOS # 0.3 K/mm3 (0.0-0.7); EOS % 6.2 % (0.0-4.0); GRAN # 3.5 K/mm3 (1.4-6.5); GRAN % 67.8 % (42.2-75.2); LYMPH # 0.9 K/mm3 (1.2-3.4); LYMPH % 16.7 % (20.0-51.0); MEAN CELL VOLUME 92 fl (80.0-100.0); MEAN CORPUSCULAR HGB CONC 32 g/dl (33.0-37.0); MEAN PLATELET VOLUME 8.9 fl (7.4-10.4); MONO # 0.4 K/mm3 (0.1-0.6); MONO % 7.9 % (1.7-9.3); PLATELET COUNT 317 K/mm3 (130-400); RED BLOOD COUNT 2.62 M/mm3 (4.10-5.30); REDCELL DISTRIBUTION WIDTH-CV 15.1 % (11.5-14.5)
[2021-09-16 07:13] LABS: HEMATOCRIT 24.1 % (37.0-47.0); HEMOGLOBIN 7.6 g/dl (12.5-16.0); MEAN CORPUSCULAR HEMOGLOBIN 29 pg (27-31)
[2021-09-16 07:17] LABS: CALCIUM 8.6 mg/dL (8.4-10.2); CREATININE, serum 1.05 mg/dL (0.57-1.11); POTASSIUM 3.6 mmol/L (3.5-4.5)
[2021-09-16 07:44] VITALS: BP 145/61; PULSE 57; TEMP 97.9
[2021-09-16 13:07] VITALS: BP 153/62; PULSE 72; TEMP 97.9
--- NOTE | 2021-09-16 15:00 | NUR ---
dc orders faxed to [facility]. Patient's daughter will be here around 1600 with transportation for the patient.
--- NOTE | 2021-09-16 16:38 | NUR ---
Reviewed discharge instructions with pt and daughter. All questions answered. INT removed from right forearm. Pt escorted out
== END 2021-09-16 16:40 | disposition home health service (06) | DRG 920 ==
LOC: COL.ER 19:58 → MEDICAL 22:23
PROVIDERS: Emergency Medicine; Physician Assistant; Student in an Organized Health Care Education/Training Program; ADMIT Internal Medicine
DX: L76.22 Postprocedural hemorrhage of skin and subcutaneous tissue following other procedure (principal); T81.41XA Infection following a procedure, superficial incisional surgical site, initial encounter; E87.1 Hypo-osmolality and hyponatremia; L02.214 Cutaneous abscess of groin; I31.3 Pericardial effusion (noninflammatory); I10 Essential (primary) hypertension; E78.5 Hyperlipidemia, unspecified; M19.90 Unspecified osteoarthritis, unspecified site; Z79.82 Long term (current) use of aspirin; Z87.891 Personal history of nicotine dependence; D53.9 Nutritional anemia, unspecified; E87.6 Hypokalemia; I73.9 Peripheral vascular disease, unspecified; R00.1 Bradycardia, unspecified; N83.202 Unspecified ovarian cyst, left side; K81.9 Cholecystitis, unspecified
CPT/HCPCS: 99223-AI; 99232-AI; 99233-AI; 99239; J2543; J3480; J7030; Q9967